=== PATIENT | male | born 1975 ===

== ENCOUNTER 2018-03-31 08:54 | Emergency (ER) | payer OTHER ==
[2018-03-31 09:07] VITALS: TEMP 97.6; BMI 25.8
[2018-03-31] MEDS ORDERED: Sodium Chloride 0.9% 1,000 ML IV STA (09:20)
[2018-03-31 10:08] LABS: VENOUS BLOOD GAS PO2 65 mm/Hg (30-55)
[2018-03-31 10:18] LABS: PH,URINE 6.5 (4.7-8.0); URINE BILIRUBIN NEGATIVE (NEGATIVE); URINE BLOOD NEGATIVE (NEGATIVE); URINE GLUCOSE (UA) NEGATIVE (NEGATIVE); URINE LEUKOCYTE ESTERASE NEGATIVE Leu/uL (NEGATIVE); URINE PROTEIN NEGATIVE mg/dL (<30 mg/dL); URINE UROBILINOGEN 0.2 E.U./dL (<1 E.U./dL)
[2018-03-31 10:19] LABS: ALB/GLOB RATIO 1.3 (1.1-1.8); ALBUMIN 4.4 g/dL (3.0-4.8); ALT/SGPT 29 U/L (7-56); AST/SGOT 24 U/L (17-59); BLOOD UREA NITROGEN 16 mg/dL (7-21); CALCIUM 9.1 mg/dL (8.4-10.5); GFR AFRICAN-AMERICAN > 60; GFR NON-AFRICAN AMERICAN > 60
[2018-03-31 10:30] LABS: TROPONIN I < 0.01 ng/mL
[2018-03-31 10:34] LABS: INR 1.01 (0.93-1.08); PARTIAL THROMBOPLASTIN TIME 29.8 Seconds (25.1-36.5); PROTHROMBIN TIME 11.6 SECONDS (9.4-12.5)
[2018-03-31 10:35] LABS: URINE APPEARANCE CLEAR (CLEAR); URINE COLOR YELLOW (YELLOW)
--- NOTE | 2018-03-31 10:35 | RAD ---
HISTORY: Dizziness COMPARISON: No prior. TECHNIQUE: Chest PA and lateral FINDINGS: LUNGS: No focal consolidation. Interstitial markings are slightly increased and coarsened with a few scattered peribronchial cuffing changes. Rule out sequela of reactive/inflammatory airway disease or viral illness. PLEURA: No significant pleural effusion identified. No pneumothorax apparent. CARDIOVASCULAR: Normal. OSSEOUS STRUCTURES: No significant abnormalities. VISUALIZED UPPER ABDOMEN: Normal. OTHER FINDINGS: None. IMPRESSION: No focal consolidation. Interstitial markings are slightly increased and coarsened with a few scattered peribronchial cuffing changes. Rule out sequela of reactive/inflammatory airway disease or viral illness.
[2018-03-31 10:50] LABS: BASO # 0.01 K/mm3 (0.0-2.0); BASO % 0.2 % (0.0-3.0); EOS % 0.6 % (1.5-5.0); GRAN # 3.73 (1.4-6.5); GRAN % 59.7 % (50.0-68.0); HEMOGLOBIN 14.2 g/dL (14.0-18.0); LYMPH % 32.6 % (22.0-35.0); MEAN CELL VOLUME 87.4 fl (80.0-105.0); MEAN CORPUSCULAR HEMOGLOBIN 30.4 pg (25.0-35.0); MEAN CORPUSCULAR HGB CONC 34.8 g/dl (31.0-37.0); MEAN PLATELET VOLUME 9.1 fl (7.0-11.0); MONO # 0.4 (0.1-0.6); MONO % 6.9 % (1.0-6.0); RBC 4.67 10^6/uL (3.5-6.1); WHITE BLOOD COUNT 6.3 10^3/ul (4.5-11.0)
[2018-03-31 11:16] VITALS: RESP 18
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
[2018-03-31 12:08] VITALS: BP 121/61; PULSE 58; O2SAT 100
--- NOTE | 2018-03-31 15:36 | CARD ---
APPROVED REPORT EKG Measurement Heart [id number] <Conclusion> Sinus bradycardia Otherwise normal ECG
== END 2018-03-31 12:28 | disposition home or self-care (01) ==
LOC: ED 08:54
DX: E86.0 Dehydration (principal); R42 Dizziness and giddiness; Z71.89 Other specified counseling
CPT/HCPCS: 71046; 80053; 81003; 82550; 82803; 83615; 83735; 84484; 85025; 85610; 85730; 87491; 87591; 93005; 96360; 99284; J7030

== ENCOUNTER 2018-05-04 10:32 | Emergency (ER) | payer OTHER ==
[2018-05-04 10:32] VITALS: BMI 25.8
--- NOTE | 2018-05-04 11:00 | ED PDOC ---
Arrival/HPI - General Chief Complaint: Cough, Cold, Congestion Time Seen by Provider: 05/04/18 10:39 Historian: Patient - History of Present Illness Narrative History of Present Illness (Text): 05/04/18 10:51 A 42 year old male, whose past medical history includes asthma, presents to the emergency department with a complaint of several day duration cough, congestion, URI, weakness, and fatigue. The patient notes that he has also been feeling feverish with chills and his cough is associated with white and yellow sputum production. The patient notes that he recelnty traveled from the [facility] and arrived 4 days ago. He states that he is a non-drinker/non- smoker. The patient denies headache, dizziness, chest pain, shortness of breath , dyspnea on exertion, abdominal pain, nausea, vomiting, diarrhea, back pain, neck pain, urinary/bowel changes, or any other complaint. Time/Duration: Other (Several Days) Symptom Onset: Sudden Symptom Course: Unchanged Activities at Onset: Rest, Light Context: Home Associated Symptoms (Text): 05/04/18 11:49 Cough congestion and URI feeling feverish with chills and sputum production for the last several days. He gets improvement with Advil. No chest pain or dyspnea. Past Medical History - Provider Review Nursing Documentation Reviewed: Yes - Infectious Disease Hx of Infectious Diseases: None - Cardiac Hx Cardiac Disorders: No - Pulmonary Hx Respiratory Disorders: Yes Hx Asthma: Yes - Neurological Hx Neurological Disorder: No - HEENT Hx HEENT Disorder: No - Renal Hx Renal Disorder: No - Endocrine/Metabolic Hx Endocrine Disorders: No - Hematological/Oncological Hx Blood Disorders: No - Integumentary Hx Dermatological Disorder: No - Musculoskeletal/Rheumatological Hx Musculoskeletal Disorders: No - Gastrointestinal Hx Gastrointestinal Disorders: No - Genitourinary/Gynecological Hx Genitourinary Disorders: No - Psychiatric Hx Psychophysiologic Disorder: No Hx Substance Use: No - Anesthesia Hx Anesthesia: No Family/Social History - Physician Review Nursing Documentation Reviewed: Yes Family/Social History: No Known Family HX Smoking Status: Never Smoked Hx Alcohol Use: Yes Hx Substance Use: No Allergies/Home Meds Allergies/Adverse Reactions: Allergies No Known Allergies Allergy (Verified 05/04/18 10:41) Review of Systems - Physician Review All systems were reviewed & negative as marked: Yes - Review of Systems Constitutional: Fatigue, Fevers, Other (Weakness) ENT: Sinus Congestion Respiratory: Cough, Sputum (Yellow and white). absent: SOB, Wheezing Cardiovascular: absent: Chest Pain, SPENCE Gastrointestinal: absent: Abdominal Pain, Stool Changes, Diarrhea, Nausea, Vomiting Genitourinary Male: absent: Urinary Output Changes Musculoskeletal: absent: Back Pain, Neck Pain Neurological: absent: Headache, Dizziness Physical Exam Vital Signs Temp Pulse Resp BP Pulse Ox 05/04/18 11:58 72 18 135/79 98 05/04/18 10:32 98.7 F 74 18 136/63 96 Temperature: Afebrile Blood Pressure: Normal Pulse: Regular Respiratory Rate: Normal Appearance: Positive for: Well-Appearing, Non-Toxic, Comfortable Pain Distress: None Mental Status: Positive for: Alert and Oriented X 3 - Systems Exam Head: Present: Atraumatic, Normocephalic Pupils: Present: PERRL Extroacular Muscles: Present: EOMI Conjunctiva: Present: Normal Ears: Present: NORMAL TM, Normal Canal. No: Erythema Mouth: Present: Moist Mucous Membranes Pharnyx: No: ERYTHEMA, EXUDATE, TONSILS ENLARGED Neck: Present: Normal Range of Motion Respiratory/Chest: Present: Decreased Breath Sounds, Rhonchi. No: Respiratory Distress, Accessory Muscle Use, Wheezes, Rales, Retracting, Tachypneic, Tender to Palpation Cardiovascular: Present: Regular Rate and Rhythm, Normal S1, S2. No: Murmurs Abdomen: No: Tenderness, Distention, Peritoneal Signs Back: Present: Normal Inspection Upper Extremity: Present: Normal Inspection. No: Cyanosis, Edema Lower Extremity: Present: Normal Inspection. No: Edema Neurological: Present: GCS=15, CN II-XII Intact, Speech Normal, Motor Func Grossly Intact Skin: Present: Warm, Dry, Normal Color. No: Rashes Psychiatric: Present: Alert, Oriented x 3, Normal Insight, Normal Concentration Medical Decision Making ED Course and Treatment: 05/04/18 11:01 Impression: A 42 year old male presents to the emergency department with a complaint of several day duration, cough, congestion, URI symptoms, fatigue, weakness, fever , chills, and white/yellow sputum production. Plan: -- Chest X-ray -- Labs -- Reassess and disposition Progress Notes: 05/04/18 12:01 On re-evaluation, patient feels better and is in no acute distress. Chest X-ray normal. I have discussed the results and plan with the patient, who expresses understanding. Patient in agreement with plan to be discharged home. Patient is stable for discharge. Patient was instructed to follow up with physician or return if symptoms worsen or new concerning symptoms arise. - Lab Interpretations Lab Results: 05/04/18 11:00 05/04/18 11:00 Lab Results 05/04/18 11:00: Sodium 141, Potassium 3.7, Chloride 103, Carbon Dioxide 26, Anion Gap 16, BUN 16, Creatinine 0.8, Est GFR ( Amer) > 60, Est GFR (Non- Af Amer) > 60, Random Glucose 110, Calcium 8.9, Total Bilirubin 0.8, AST 34, ALT 41, Alkaline Phosphatase 60, Total Protein 8.2, Albumin 4.4, Globulin 3.8, Albumin/Globulin Ratio 1.2 05/04/18 11:00: WBC 11.2 H D, RBC 4.84, Hgb 14.7, Hct 42.4, MCV 87.6, MCH 30.4, MCHC 34.7, RDW 12.0, Plt Count 211, MPV 8.6, Gran % 61.2, Lymph % (Auto) 15.3 L , [place] % (Auto) 23.1 H, Eos % (Auto) 0.1 L, Baso % (Auto) 0.3, Gran # 6.84 H, Lymph # (Auto) 1.7, [place] # (Auto) 2.6 H, Eos # (Auto) 0.0, Baso # (Auto) 0.03, Neutrophils % (Manual) 68, Lymphocytes % (Manual) 18 L, Atypical Lymphs % 1 H, Monocytes % (Manual) 13 H, Platelet Evaluation Normal I have reviewed the lab results: Yes - RAD Interpretation Radiology Orders: 05/04/18 10:49 CHEST TWO VIEWS (PA/LAT) [RAD] Stat Chest 2 view shows no infiltrate effusion or cardiomegaly. Hybrid [employer]eder: ED Physician - Scribe Statement The provider has reviewed the documentation as recorded by the Scribe Sherice Freeman Provider Scribe Attestation: All medical record entries made by the Scribe were at my direction and personally dictated by me. I have reviewed the chart and agree that the record accurately reflects my personal performance of the history, physical exam, medical decision making, and the department course for this patient. I have also personally directed, reviewed, and agree with the discharge instructions and disposition. Disposition/Present on Arrival - Present on Arrival Any Indicators Present on Arrival: No History of DVT/PE: No History of Uncontrolled Diabetes: No Urinary Catheter: No History of Decub. Ulcer: No History Surgical Site Infection Following: None - Disposition Have Diagnosis and Disposition been Completed?: Yes Diagnosis: Bronchitis Disposition: HOME/ ROUTINE Disposition Time: 11:51 Patient Plan: Discharge Condition: GOOD Discharge Instructions (ExitCare): Acute Bronchitis Additional Instructions: Symptomatic treatment. Tylenol or Advil as directed on bottle as needed. Follow- up with PMD. Follow up in ER as needed. Prescriptions: Benzonatate [Tessalon Perles] 100 mg PO Q8 #30 sgl Albuterol HFA [Ventolin HFA 90 mcg/actuation (8 g)] 2 puff IH [id number] #1 puff Azithromycin [Zithromax] 250 mg PO DAILY #6 tab Forms: [facility] ([place]), WORK NOTE
[2018-05-04 11:15] LABS: BASO # 0.03 K/mm3 (0.0-2.0); BASO % 0.3 % (0.0-3.0); EOS % 0.1 % (1.5-5.0); GRAN # 6.84 (1.4-6.5); GRAN % 61.2 % (50.0-68.0); HEMOGLOBIN 14.7 g/dL (14.0-18.0); LYMPH # 1.7 (1.2-3.4); LYMPH % 15.3 % (22.0-35.0); MEAN CELL VOLUME 87.6 fl (80.0-105.0); MEAN CORPUSCULAR HEMOGLOBIN 30.4 pg (25.0-35.0); MEAN CORPUSCULAR HGB CONC 34.7 g/dl (31.0-37.0); MEAN PLATELET VOLUME 8.6 fl (7.0-11.0); MONO # 2.6 (0.1-0.6); MONO % 23.1 % (1.0-6.0); PLATELET COUNT 211 10^3/uL (120.0-450.0); RBC 4.84 10^6/uL (3.5-6.1); WHITE BLOOD COUNT 11.2 10^3/ul (4.5-11.0)
[2018-05-04 11:16] LABS: ALB/GLOB RATIO 1.2 (1.1-1.8); ALBUMIN 4.4 g/dL (3.0-4.8); ALT/SGPT 41 U/L (7-56); AST/SGOT 34 U/L (17-59); BLOOD UREA NITROGEN 16 mg/dL (7-21); CALCIUM 8.9 mg/dL (8.4-10.5); GFR AFRICAN-AMERICAN > 60; GFR NON-AFRICAN AMERICAN > 60
[2018-05-04 11:34] VITALS: RESP 18; TEMP 98.7
[2018-05-04 11:46] LABS: ATYPICAL LYMPHOCYTE 1 % (0.0-0.0); LYMPHOCYTE 18 % (22.0-35.0); MONOCYTE 13 % (1.0-6.0); NEUTROPHIL 68 % (50.0-70.0)
[2018-05-04 11:47] LABS: PLATELET ESTIMATE NORMAL (NORMAL)
[2018-05-04 11:59] VITALS: BP 135/79; PULSE 72; O2SAT 98
--- NOTE | 2018-05-04 12:20 | RAD ---
HISTORY: Cough. COMPARISON: No prior. TECHNIQUE: Chest PA and lateral FINDINGS: LUNGS: No active pulmonary disease. PLEURA: No significant pleural effusion identified. No pneumothorax apparent. CARDIOVASCULAR: Normal. OSSEOUS STRUCTURES: No significant abnormalities. VISUALIZED UPPER ABDOMEN: Normal. OTHER FINDINGS: None. IMPRESSION: No active disease.
== END 2018-05-04 11:58 | disposition home or self-care (01) ==
LOC: ED 10:32
DX: J40 Bronchitis, not specified as acute or chronic (principal)